=== PATIENT | male | born 1970 | race African-American/Black ===

== ENCOUNTER 2016-10-28 15:35 | Emergency (ER) | payer SELFPAY ==
[~2016-10-28] VITALS: Ht 172.7 cm; Wt 67.6 kg
[2016-10-28 15:40] VITALS: BP 143/97
--- NOTE | 2016-10-28 15:46 | PHYS DOC ---
Past Medical History Past Medical History: No Pertinent History Past Surgical History: No Surgical History Alcohol Use: Rarely Drug Use: None Adult General Chief Complaint Chief Complaint: COUGH HPI HPI Patient is a 46 year old male presents emergent today with complaint of headache, nasal congestion, nonproductive cough, body aches and left chest wall pain secondary to coughing that began 2 days ago. Patient denies any history of heart or lung disease. Patient does admit to smoking. He denies any known ill contacts with influenza or other respiratory infections. He denies hospitalization, foreign travel or antibiotic use within the past 90 days. Patient denies taking any antipyretics in the last 24 hours. Review of Systems Review of Systems Constitutional: Denies fever or chills [] Eyes: Denies change in visual acuity, redness, or eye pain [] HENT: Denies nasal congestion or sore throat [] Respiratory: Denies cough or shortness of breath [] Cardiovascular: No additional information not addressed in HPI [] GI: Denies abdominal pain, nausea, vomiting, bloody stools or diarrhea [] : Denies dysuria or hematuria [] Musculoskeletal: Denies back pain or joint pain [] Integument: Denies rash or skin lesions [] Neurologic: Denies headache, focal weakness or sensory changes [] Endocrine: Denies polyuria or polydipsia [] Allergies Allergies Allergies Coded Allergies Type Severity Reaction Last Updated Verified No Known Drug Allergies 04/09/14 No Physical Exam Physical Exam Constitutional: Well developed, well nourished, no acute distress, non-toxic appearance. [] HENT: Normocephalic, atraumatic, bilateral external ears normal, oropharynx moist, no oral exudates, clear rhinorrhea with inflamed nasal mucosa. Eyes: PERRLA, EOMI, conjunctiva normal, no discharge. [] Neck: Normal range of motion, no tenderness, supple, no stridor. There is no meningismus. There is bilateral anterior and posterior cervical lymphadenopathy. Cardiovascular:Heart rate regular rhythm, no murmur [] Lungs & Thorax: There is no respiratory distress respiratory fatigue. There is no posturing or sensory muscle use. Mild central coarse wheezing the resonates bilaterally. This appears to clear with coughing. Peripheral lung [place] are clear to auscultation. Abdomen: Bowel sounds normal, soft, no tenderness, no masses, no pulsatile masses. [] Skin: Warm, dry, no erythema, no rash. [] Back: No tenderness, no CVA tenderness. [] Extremities: No tenderness, no cyanosis, no clubbing, ROM intact, no edema. [] Neurologic: Alert and oriented X 3, normal motor function, normal sensory function, no focal deficits noted. [] Psychologic: Affect normal, judgement normal, mood normal. [] Current Patient Data Vital Signs Vital Signs Date Time Temp Pulse Resp B/P Pulse Ox O2 Delivery O2 Flow Rate FiO2 10/28/16 15:40 98.4 77 16 99 Room Air 98.4 Lab Values Laboratory Tests Test 10/28/16 15:45 Influenza Type A Antigen Negative (NEGATIVE) Influenza Type B Antigen Negative (NEGATIVE) EKG EKG [] Radiology/Procedures Radiology/Procedures PA and lateral chest x-ray was performed with adequate technique. There is no evidence of acute thoracic process. Course & Med Decision Making Course & Med Decision Making Pertinent Labs and Imaging studies reviewed. (See chart for details) [] Dragon Disclaimer Dragon Disclaimer This electronic medical record was generated, in whole or in part, using a voice recognition dictation system. Departure Departure Impression: Primary Impression: Upper respiratory infection Disposition: HOME, SELF-CARE Condition: GOOD Referrals: NON,STAFF (PCP) Patient Instructions: Upper Respiratory Infection, Adult, [id number] Additional Instructions: 1. Influenza test is negative. Chest x-ray is normal. 2. Review the discharge paperwork provided for self-care and reasons to return to the emergency department. 3. Take the medication as prescribed. Medications used to treat symptoms. Viral illnesses does not require antibiotics. 4. Use the pamphlet provided for assistance in finding a primary care doctor in which you may follow up to address any other medical concerns that you may have. Scripts D-Methorphan Hb/Prometh Hcl (Promethazine-Dm Syrup)118 Ml Syrup5 Ml PO PRN Q6HRS COUGH #120 ML Prov:ALIRIO JOHNSON 10/28/16 ALIRIO JOHNSON Oct 28, 2016 15:46
[2016-10-28 16:09] LABS: OBC FLU VALID
[2016-10-28] MEDS ORDERED: D-ME118S2 PO (16:27)
--- NOTE | 2016-10-29 08:49 | RAD ---
PA and lateral chest radiographs 10/28/2016 Clinical history: Productive cough for 2 days. PA and lateral digital radiographs of the chest were obtained. The cardiac and mediastinal silhouettes are within normal limits in size and configuration. Atherosclerotic calcification of the thoracic aorta is seen. No acute pulmonary infiltrate is seen. No pleural effusion or pneumothorax is noted. The osseous structures are grossly intact. Impression: No acute pulmonary infiltrate is seen.
== END 2016-10-28 16:29 | disposition home or self-care (01) ==
LOC: ER 15:35
DX: J06.9 Acute upper respiratory infection, unspecified (principal); R07.89 Other chest pain
CPT/HCPCS: 71020; 87804; 99285-25

== ENCOUNTER 2018-02-19 11:10 | Emergency (ER) | payer SELFPAY ==
[2018-02-19] MEDS: IPRATRPIUM/ALBUTEROL 0.5/2.5MG 3 ML NEBU. NEB (11:32)
[2018-02-19 11:35] LABS: ADD MAN DIFF? NO
[2018-02-19 11:38] LABS: BASO % 0 % (0-3); EOS % 0 % (0-3); HEMATOCRIT 39.2 % (39.0-53.0); HEMOGLOBIN 13.3 g/dL (13.0-17.5); LYMPH # 0.4 x10^3/uL (1.0-4.8); LYMPH % 8 % (24-48); MEAN CORPUSCULAR HEMOGLOBIN 32 pg (25-35); MEAN CORPUSCULAR HGB CONC 34 g/dL (31-37); MEAN CORPUSCULAR VOLUME 93 fL (79-100); MONO # 0.6 x10^3/uL (0.0-1.1); MONO % 11 % (0-9); NEUT # 4.5 x10^3uL (1.8-7.7); NEUT % 80 % (31-73); PLATELET COUNT 264 x10^3/uL (140-400); RED BLOOD COUNT 4.23 x10^6/uL (4.30-5.70); WHITE BLOOD COUNT 5.7 x10^3/uL (4.0-11.0)
[2018-02-19 11:47] LABS: ANION GAP 9 (6-14); BLOOD UREA NITROGEN 12 mg/dL (8-26); BUN/CREATININE RATIO 12 (6-20); CALCIUM 8.6 mg/dL (8.5-10.1); CARBON DIOXIDE 28 mmol/L (21-32); CHLORIDE 101 mmol/L (98-107); GFR 96.9; GLUCOSE 79 mg/dL (70-99); SODIUM 138 mmol/L (136-145)
[2018-02-19 11:53] LABS: ALBUMIN 4.1 g/dL (3.4-5.0); ALBUMIN/GLOBULIN RATIO 1.2 (1.0-1.7); ALK PHOS 85 U/L (46-116); ALT (SGPT) 47 U/L (16-63); AST (SGOT) 40 U/L (15-37); TOTAL BILIRUBIN 0.7 mg/dL (0.2-1.0); TOTAL PROTEIN 7.5 g/dL (6.4-8.2)
[2018-02-19 11:58] LABS: TROPONINI < 0.017 ng/mL (0.000-0.055)
[2018-02-19 12:01] LABS: CKMB INDEX 0.4 % (0-4); CKMB MASS 2.1 ng/mL (0.0-3.6); CREATINE KINASE 570 U/L (39-308)
[2018-02-19] MEDS: IV NORMAL SALINE 1000ML BAG 1,000 ML IV (12:57)
== END 2018-02-19 13:13 | disposition home or self-care (01) ==
LOC: ER 11:10
DX: J20.9 Acute bronchitis, unspecified (principal); F31.9 Bipolar disorder, unspecified; F17.200 Nicotine dependence, unspecified, uncomplicated; F10.10 Alcohol abuse, uncomplicated; Z86.73 Personal history of transient ischemic attack (TIA), and cerebral infarction without residual deficits
CPT/HCPCS: 36415; 71045; 80053; 82553; 84484; 85025; 93005; 94640; 99285-25; J7030; J7620

== ENCOUNTER 2018-07-27 07:16 | Emergency (ER) | payer SELFPAY ==
[~2018-07-27] VITALS: Ht 172.7 cm; Wt 68.5 kg
[2018-07-27 07:16] VITALS: BP 178/115
[~2018-07-27 07:16] MED LIST: AZIT250T6 PO; D-ME118S2 PO; PRED20TA PO; PROAIR HFA8.5 GM INH
--- NOTE | 2018-07-27 07:44 | PHYS DOC ---
Past Medical History Past Medical History: CVA, Depression, Hypertension, Other Additional Past Medical Histor: STROKE "COUPLE YRS AGO" Past Surgical History: No Surgical History Alcohol Use: Heavy Drug Use: Marijuana Adult General Chief Complaint Chief Complaint: HEAD INJURY/TRAUMA HPI HPI Patient is a 47-year-old male who presents to the emergency department for evaluation. He states that 4 days ago he slipped on the ice and landed on the back of his head. He states that he didn't think he was initially injured so bad but over the past few days he has had a worsening headache, and he had vomiting episodes yesterday and the day before. He also complains of pain in his neck diffusely. He denies any numbness or weakness, mental status changes or lethargy. 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 There are no alleviating or exacerbating factors to the patient's symptoms. Review of Systems Review of Systems Constitutional: Denies fever or chills [] Eyes: Denies change in visual acuity, redness, or eye pain [] HENT: Denies nasal congestion or sore throat [] Respiratory: Denies cough or shortness of breath [] Cardiovascular:The patient denies any shortness of breath, chest pain, palpitations, or orthopnea [] GI: Denies abdominal pain,bloody stools or diarrhea and reports occasional vomiting. [] : Denies dysuria or hematuria [] Musculoskeletal: Denies back pain or joint pain. Reports neck pain [] Integument: Denies rash or skin lesions [] Neurologic: Denies focal weakness or sensory changes [] Endocrine: Denies polyuria or polydipsia [] All other systems were reviewed and found to be within normal limits, except as documented in this note. Allergies Allergies Allergies Coded Allergies Type Severity Reaction Last Updated Verified No Known Drug Allergies 04/09/14 No Physical Exam Physical Exam PHYSICAL EXAM: CONSTITUTIONAL: Well developed, well nourished HEAD: normocephalic, there is mild tenderness to palpation of the posterior scalp, without any obvious wounds or bruises. The remainder of the cranium is atraumatic EENT: PERRL, EOMI. Conjunctivae normal color, sclerae non-icteric; moist mucous membranes. NECK: Is mild diffuse tenderness to palpation of the cervical spine without any bony tenderness to palpation. LUNGS: Lungs CTA, breathing even and unlabored. Normal air movement. HEART: Regular rate and rhythm, no murmur CHEST: No deformity; non-tender ABDOMEN: The abdomen is soft, and non-tender, no masses or bruits. EXTREM: Normal ROM; no deformity, no calf tenderness. Normal pulses palpable in all extremities. There is no pedal edema. SKIN: No rash; no diaphoresis NEURO: Alert; normal speech and cognition; CN's grossly intact; strength grossly intact without focal deficit. BACK: No CVA TTP.There is no bony tenderness to palpation of the thoracic or lumbar spine. Current Patient Data Vital Signs Vital Signs Date Time Temp Pulse Resp B/P (MAP) Pulse Ox O2 Delivery O2 Flow Rate FiO2 07/27/18 07:16 97.6 71 16 178/115 (136) 100 Room Air 97.6 EKG EKG [] Radiology/Procedures Radiology/Procedures [PROCEDURE: CT HEAD AND CERVICAL SPINE WO CT scan of the head without contrast 07/27/2018 Clinical History: Fall with head trauma. Technique: Unenhanced, contiguous, 5 mm axial sections were obtained through the head. One or more of the following individualized dose reduction techniques were utilized for this study: 1. Automated exposure control. 2. Adjustment of the mA and/or kV according to patient size. 3. Use of iterative reconstruction technique. Findings: The ventricles and sulci are within normal limits in size and configuration. No acute parenchymal abnormality is seen. No extra-axial fluid collection is noted. No skull fracture is seen. Impression: No acute intracranial abnormality is seen. CT scan of the cervical spine without contrast 07/27/2018 Clinical history: Neck pain post fall. Technique: Unenhanced, contiguous, 0.625 mm axial sections were obtained through the cervical spine. Axial, coronal and sagittal reconstructed images were obtained. One or more of the following individualized dose reduction techniques were utilized for this study: 1. Automated exposure control. 2. Adjustment of the mA and/or kV according to patient size. 3. Use of iterative reconstruction technique. Findings: Sagittal and coronal reconstructed images demonstrate mild lateral curvature of the cervical spine, convex to the right. There is straightening of the normal cervical lordosis. Degenerative changes consisting of varying degrees of disc space narrowing, vertebral endplate sclerosis and mild to moderate anterior and posterior vertebral body osteophyte formation str seen throughout the cervical disc spaces. Atherosclerotic calcification is seen in the region carotid bifurcations. No fracture or subluxation of the cervical vertebrae is seen. Degenerative changes are seen involving the uncovertebral and facet joints throughout the mid and lower cervical disc spaces. Impression: No fracture or subluxation of the cervical vertebra is identified.] Course & Med Decision Making Course & Med Decision Making Pertinent Imaging studies reviewed. (See chart for details) [Initial assessment in the emergency Department reveals a patient who suffered a head injury 4 days ago. Despite greater than 24 hours interval between his presentation and the injury, the fact that he is having worsening headache and has developed episodes of vomiting, does raise the possibility of an intracranial hemorrhage, and I do believe that in this particular patient, CT imaging is appropriate. His cervical spine will be imaged as well.] 8:25 AM: Patient remains stable. I discussed test results, the need for close follow-up, and return precautions. Dragon Disclaimer Dragon Disclaimer This electronic medical record was generated, in whole or in part, using a voice recognition dictation system. Departure Departure Impression: Primary Impression: Head injury Additional Impression: Cervical strain Disposition: 01 HOME, SELF-CARE Condition: STABLE Referrals: UNKNOWN PCP NAME (PCP) Patient Instructions: Cervical Sprain, Head Injury, Adult Problem Qualifiers LIMA NOEL MD Jul 27, 2018 07:44
--- NOTE | 2018-07-27 08:23 | RAD ---
CT scan of the head without contrast 07/27/2018 Clinical History: Fall with head trauma. Technique: Unenhanced, contiguous, 5 mm axial sections were obtained through the head. One or more of the following individualized dose reduction techniques were utilized for this study: 1. Automated exposure control. 2. Adjustment of the mA and/or kV according to patient size. 3. Use of iterative reconstruction technique. Findings: The ventricles and sulci are within normal limits in size and configuration. No acute parenchymal abnormality is seen. No extra-axial fluid collection is noted. No skull fracture is seen. Impression: No acute intracranial abnormality is seen. CT scan of the cervical spine without contrast 07/27/2018 Clinical history: Neck pain post fall. Technique: Unenhanced, contiguous, 0.625 mm axial sections were obtained through the cervical spine. Axial, coronal and sagittal reconstructed images were obtained. One or more of the following individualized dose reduction techniques were utilized for this study: 1. Automated exposure control. 2. Adjustment of the mA and/or kV according to patient size. 3. Use of iterative reconstruction technique. Findings: Sagittal and coronal reconstructed images demonstrate mild lateral curvature of the cervical spine, convex to the right. There is straightening of the normal cervical lordosis. Degenerative changes consisting of varying degrees of disc space narrowing, vertebral endplate sclerosis and mild to moderate anterior and posterior vertebral body osteophyte formation str seen throughout the cervical disc spaces. Atherosclerotic calcification is seen in the region carotid bifurcations. No fracture or subluxation of the cervical vertebrae is seen. Degenerative changes are seen involving the uncovertebral and facet joints throughout the mid and lower cervical disc spaces. Impression: No fracture or subluxation of the cervical vertebra is identified. Electronically signed by: Jordy Stuart MD (07/27/2018 8:19 AM) [id number]
[2018-07-27] MEDS ORDERED: CYCL10TA2 PO (08:31)
== END 2018-07-27 08:28 | disposition home or self-care (01) ==
LOC: ER 07:16
DX: S16.1XXA Strain of muscle, fascia and tendon at neck level, initial encounter (principal); S09.8XXA Other specified injuries of head, initial encounter; R11.10 Vomiting, unspecified; H54.62 Unqualified visual loss, left eye, normal vision right eye; F32.9 Major depressive disorder, single episode, unspecified; I10 Essential (primary) hypertension; Z86.73 Personal history of transient ischemic attack (TIA), and cerebral infarction without residual deficits; F10.20 Alcohol dependence, uncomplicated; Y90.9 Presence of alcohol in blood, level not specified; W00.0XXA Fall on same level due to ice and snow, initial encounter; Y93.89 Activity, other specified; Y92.89 Other specified places as the place of occurrence of the external cause; Y99.8 Other external cause status
CPT/HCPCS: 70450; 72125; 99284

== ENCOUNTER 2018-11-16 10:45 | Emergency (ER) | payer SELFPAY ==
[~2018-11-16] VITALS: Ht 172.7 cm; Wt 68.0 kg
[2018-11-16 10:45] VITALS: BP 145/86
[~2018-11-16 10:45] MED LIST changes: +ALBU2.5V8 INH; +CYCL10TA2 PO; -PROAIR HFA8.5 GM INH
[2018-11-16] MEDS ORDERED: NAPR-514 PO (12:09)
--- NOTE | 2018-11-16 12:10 | PHYS DOC ---
Past Medical History Past Medical History: CVA, Depression, Hypertension, Other Additional Past Medical Histor: STROKE "COUPLE YRS AGO" Past Surgical History: No Surgical History Alcohol Use: Heavy Drug Use: Marijuana Social History Narrative: last use yesterday Adult General Chief Complaint Chief Complaint: HAND PROBLEM HPI HPI 8-year-old male presents with burning pain in his fingers and wrist. He states his pain radiates up both arms. He denies any chest pain or shortness of breath. 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 He states his pain is been worsening over the last several days. Worse in the morning.[] Review of Systems Review of Systems Constitutional: Denies fever or chills [] Eyes: Denies change in visual acuity, redness, or eye pain [] HENT: Denies nasal congestion or sore throat [] Respiratory: Denies cough or shortness of breath [] Cardiovascular: No additional information not addressed in HPI [] GI: Denies abdominal pain, nausea, vomiting, bloody stools or diarrhea [] : Denies dysuria or hematuria [] Musculoskeletal: Per history of present illness[] Integument: Denies rash or skin lesions [] Neurologic: Per history of present illness[] Endocrine: Denies polyuria or polydipsia [] All other systems were reviewed and found to be within normal limits, except as documented in this note. Allergies Allergies Allergies Coded Allergies Type Severity Reaction Last Updated Verified No Known Drug Allergies 04/09/14 No Physical Exam Physical Exam Constitutional: Well developed, well nourished, no acute distress, non-toxic appearance. [] HENT: Normocephalic, atraumatic, bilateral external ears normal, oropharynx moist, no oral exudates, nose normal. [] Eyes: PERRLA, EOMI, conjunctiva normal, no discharge. [] Neck: Normal range of motion, no tenderness, supple, no stridor. [] Cardiovascular:Heart rate regular rhythm, no murmur [] Lungs & Thorax: Bilateral breath sounds clear to auscultation [] Abdomen: Bowel sounds normal, soft, no tenderness, no masses, no pulsatile masses. [] Skin: Warm, dry, no erythema, no rash. [] Back: No tenderness, no CVA tenderness. [] Extremities: No tenderness, no cyanosis, no clubbing, ROM intact, no edema. [] Neurologic: Alert and oriented X 3, normal motor function, normal sensory function, no focal deficits noted. [] Psychologic: Anxious. [] Current Patient Data Vital Signs Vital Signs Date Time Temp Pulse Resp B/P (MAP) Pulse Ox O2 Delivery O2 Flow Rate FiO2 11/16/18 10:45 98.8 75 14 145/86 (105) 98 Room Air 98.8 EKG EKG [] Radiology/Procedures Radiology/Procedures [] Course & Med Decision Making Course & Med Decision Making Pertinent Labs and Imaging studies reviewed. (See chart for details) [] Dragon Disclaimer Dragon Disclaimer This electronic medical record was generated, in whole or in part, using a voice recognition dictation system. Departure Departure Impression: Primary Impression: Carpal tunnel syndrome on both sides Disposition: HOME, SELF-CARE Condition: STABLE Referrals: NO PCP (PCP) DION BLUNT MD Call his office this week to schedule follow-up. Patient Instructions: Carpal Tunnel Syndrome, Carpal Tunnel Syndrome-SportsMed Additional Instructions: Follow with Dr. Theodore this week for recheck. Return to the emergency department with any new or concerning symptoms. Wear your wrist splints to bed at night every night. Scripts Naproxen (NAPROXEN) 500 Mg Tablet 1 TAB PO BID PRN for PAIN, #30 TAB 1 Refill Prov: WESLEY RUSSO DO 11/16/18 WESLEY RUSSO DO Nov 16, 2018 12:10
== END 2018-11-16 12:36 | disposition home or self-care (01) ==
LOC: ER 10:45
DX: G56.03 Carpal tunnel syndrome, bilateral upper limbs (principal); F32.9 Major depressive disorder, single episode, unspecified; I10 Essential (primary) hypertension; F10.20 Alcohol dependence, uncomplicated; Y90.9 Presence of alcohol in blood, level not specified; Z86.73 Personal history of transient ischemic attack (TIA), and cerebral infarction without residual deficits
CPT/HCPCS: 29125; 99283